=== PATIENT | female | born 1975 | race Caucasian/White ===

== ENCOUNTER → 2021-02-05 | Outpatient (CLI) | payer BC, OTHER | LOC: MRI 08:08 | DX: R22.32 Localized swelling, mass and lump, left upper limb (principal) | CPT/HCPCS: 36415; 73220; 82565; A9577 ==

== ENCOUNTER → 2021-03-17 | Outpatient (CLI) | payer BC, OTHER ==
[~2021-03-17] MED LIST: CLONIDINE HCL0.3 MG PO; COREG25 MG PO; LIPITOR TAB 2020 MG PO; METFORMIN HCL500 MG PO; VENLAFAXINE H37.5 M1 PO
[2021-03-17 11:44] LABS: BUN/CREATININE RATIO 13 (0-10)
== END ==
LOC: OPSV2 10:00
PROVIDERS: Anesthesiology
DX: Z01.818 Encounter for other preprocedural examination (principal)
CPT/HCPCS: 80048; 93005

== ENCOUNTER → 2021-03-24 | Day surgery (SDC) | payer BC, OTHER ==
[~2021-03-24] MED LIST changes: +HYDROCODON-ACE1 EAC4 PO
== END | disposition home or self-care (01) ==
LOC: OR 05:23
DX: R22.32 Localized swelling, mass and lump, left upper limb (principal); I10 Essential (primary) hypertension; E78.5 Hyperlipidemia, unspecified; E11.9 Type 2 diabetes mellitus without complications; Z88.5 Allergy status to narcotic agent; Z88.4 Allergy status to anesthetic agent; Z91.040 Latex allergy status; Z90.49 Acquired absence of other specified parts of digestive tract; Z98.51 Tubal ligation status; Z20.822 Contact with and (suspected) exposure to COVID-19
CPT/HCPCS: 82962; J0690; J1100; J2250; J2405; J2704; J2765; J3010; J7120